=== PATIENT | male | born 1985 | race Caucasian/White ===

== ENCOUNTER 2017-04-12 11:45 | Emergency (ER) | payer BC, OTHER ==
[~2017-04-12] VITALS: Ht 172.7 cm; Wt 79.2 kg
[2017-04-12 11:45] VITALS: TEMP 36.7; Ht 172.7 cm; Wt 79.2 kg
[~2017-04-12 11:45] MED LIST: ERYT1OIN55 OPL
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
[2017-04-12 12:51] LABS: URINE APPEARANCE CLEAR (CLEAR); URINE BILIRUBIN NEG (NEG); URINE COLOR YELLOW; URINE NITRITE NEG (NEG); URINE SPECIFIC GRAVITY 1.009 (1.000-1.030); UROBILINOGEN NEG (NEG)
[2017-04-12 12:58] LABS: MANUAL MICROSCOPIC REQUIRED? NO; REVIEW REQ? NO
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
[2017-04-12 13:09] LABS: BENZODIAZEPINE, URINE NEG (NEG); COCAINE,URINE NEG (NEG); PHENCYCLIDINE, URINE NEG (NEG)
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
[2017-04-12 13:56] LABS: BASO % 0.2 %; BASO ABS # 0.02 K/uL (0-0.2); COMPLETE YES; EOS % 0.1 %; IG% 0.2 %; LYMPH % 11.9 %; LYMPH ABS # 1.52 K/uL (1.2-3.4); MEAN CELL VOLUME 86.5 fL (80-100); MEAN CORPUSCULAR HEMOGLOBIN 30.1 pg (25-34); MEAN CORPUSCULAR HGB CONC 34.8 g/dl (32-36); MEAN PLATELET VOLUME 11.5 fL (7.4-10.4); MONO % 6.4 %; NEUT % 81.2 %; PLATELET COUNT 167 K/uL (130-400); RED BLOOD COUNT 5.32 M/uL (4.7-6.1); WHITE BLOOD COUNT 12.75 K/uL (4.8-10.8)
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
[2017-04-12 14:08] LABS: PARTIAL THROMBOPLASTIN RATIO 1.1; PROTHROMBIN TIME (PATIENT) 10.2 SECONDS (9.0-12.0)
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
[2017-04-12 14:18] LABS: ALT/SGPT 21 U/L (12-78); AST/SGOT 18 U/L (15-37); BLOOD UREA NITROGEN 9 mg/dl (7-18); BUN/CREATININE RATIO 9.6 (10-20); CALCIUM 9.5 mg/dl (8.5-10.1); CARBON DIOXIDE 27 mmol/L (21-32); CHLORIDE 106 mmol/L (98-107); CREATININE 0.96 mg/dl (0.60-1.40); GLUCOSE 112 mg/dl (70-99); POTASSIUM 3.4 mmol/L (3.5-5.1); SODIUM 140 mmol/L (136-145)
[2017-04-12 14:21] LABS: ACETAMINOPHEN < 2 ug/ml (10-30); ALKALINE PHOSPHATASE 86 U/L (45-117)
[2017-04-12 16:14] VITALS: BP 141/90; PULSE 84; O2SAT 93
== END 2017-04-12 13:55 | disposition home or self-care (01) ==
LOC: EDBD 11:45 → C.EDC 11:46 → C.EDA 13:55
DX: S63.501A Unspecified sprain of right wrist, initial encounter (principal); F32.9 Major depressive disorder, single episode, unspecified; F41.9 Anxiety disorder, unspecified; V47.5XXA Car driver injured in collision with fixed or stationary object in traffic accident, initial encounter; Y92.488 Other paved roadways as the place of occurrence of the external cause; F10.10 Alcohol abuse, uncomplicated; K58.9 Irritable bowel syndrome, unspecified; Z91.5 Personal history of self-harm; F17.210 Nicotine dependence, cigarettes, uncomplicated

== ENCOUNTER 2019-05-11 20:39 | Inpatient (IN) ==
--- OUTSIDE RECORDS SUMMARY | 2019-05-11 20:42 | External Medical Summary | Continuity of Care Document ---
:1985 Author Name Jose Gonzalez Address Unavailable Unavailable , Care Team Providers Name Role Phone Abdifatah BOWSER Unavailable [email or web address] Unavailable [email or web address] [email or web address], UNKNOWN Unavailable Unavailable Unavailable Unavailable Unavailable Problems Abnormal weight loss (783.21) (R63.4) Abdominal pain (789.00) (R10.9) Diarrhea (787.91) (R19.7) Allergies and Adverse Reactions No Known Drug Allergies (Allergy) Medications Antacid CHEW Refills: 0 Lactaid CHEW Refills: 0 PriLOSEC OTC 20 MG Oral Tablet Delayed R elease; TAKE 1 TABLET daily 1/2 hour prior to breakfast Case, DO [place] Start: 04-Dec-2011 Quantity: 30 Refills: 5 Procedures Procedures not documented Immunizations Immunizations not documented Family History Unknown Family Member Family history of Diabetes Mellitus (V18.0) Status: Active Comments: Family History Mother Family history of Diabetes Mellitus (V18.0) Status: Active Social History - Smoking Status Current every day smoker Plan of Treatment Planned Observations Planned Goals not documented Results No Known Results Results not documented
[2019-05-11 21:21] LABS: Basophils # (auto) 0.03 K/uL (0-0.2); Basophils % (auto) 0.3 %; Eosinophils # (auto) 0.06 K/uL (0-0.5); Eosinophils % (auto) 0.6 %; Hemoglobin 15.3 g/dL (14.0-18.0); Immature Granulocytes # (auto) 0.02 K/uL (0.00-0.02); Immature Granulocytes % (auto) 0.2 %; Lymphocytes # (auto) 2.23 K/uL (1.2-3.4); Lymphocytes % (auto) 23.9 %; Mean Corpuscular Hgb Conc 33.3 g/dL (32-36); Mean Corpuscular Volume 90.2 fL (80-100); Mean Platelet Volume 10.6 fL (7.4-10.4); Monocytes # (auto) 0.71 K/uL (0.11-0.59); Monocytes % (auto) 7.6 %; Neutrophils # (auto) 6.28 K/uL (1.4-6.5); Neutrophils % (auto) 67.4 %; Platelet Count 241 K/uL (130-400); RDW Coefficient of Variation 13.3 % (11.5-14.5); RDW Standard Deviation 44.2 fL (36.4-46.3); White Blood Count 9.33 K/uL (4.8-10.8)
[2019-05-11 21:39] LABS: Albumin Level 3.8 gm/dl (3.4-5.0); BUN Creatinine Ratio 15.8 (10-20); Calcium 8.9 mg/dl (8.5-10.1); Creatinine Clr Calc Pharmacy 94.8 ml/min; Est GFR (African American) 113.5; Potassium 3.9 mmol/L (3.5-5.1)
[2019-05-11 21:49] LABS: Acetaminophen < 2 ug/ml (10-30); Salicylate < 1.7 mg/dl (2.8-20)
[2019-05-11 21:50] LABS: Albumin Globulin Ratio 1.1 (0.9-2); Bilirubin,Total 0.3 mg/dl (0.2-1); Globulin 3.4 gm/dl (2.5-4.0); Thyroid Stimulating Hormone 1.53 uIu/ml (0.300-4.500); Total Protein 7.2 gm/dl (6.4-8.2)
[2019-05-11 22:40] LABS: Appearance Urine Clear (Clear); Bacteria Urine Automated Negative (Negative); Bilirubin Urine Negative (Negative); Blood Urine Negative (Negative); Color Urine Yellow; Glucose Urine UA Negative (Negative); Ketones Urine Negative (Negative); Leukocyte Esterase Urine Negative (Negative); Nitrite Urine Negative (Negative); RBC Urine Automated 0-4 /hpf (0-4); Specific Gravity Urine 1.013 (1.000-1.030); Urobilinogen Urine Negative (Negative); WBC Urine Automated 0 /hpf (0-5); pH Urine 7.5 (4.5-7.5)
[2019-05-11 22:51] LABS: Protein Urine Negative (Negative); Sulfosalicylic Acid Urine Negative (Negative)
[2019-05-11 22:56] LABS: Amphetamines+Metham, Urine Pos (Neg); Barbiturates, Urine Neg (Neg); Benzodiazepine, Urine Neg (Neg); Cocaine, Urine Neg (Neg); MDMA (Ecstacy), Urine Neg (Neg); Methadone, Urine Neg (Neg); Opiate, Urine Neg (Neg); Phencyclidine, Urine Neg (Neg)
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
--- NOTE | 2019-05-12 03:13 | Emergency Department Note ---
ED Visit Note This case was signed out to me at change of shift awaiting further evaluation by the ED psychiatric case filler. After lengthy discussion with the case filler, we decided it would be in the best interest of the patient to go for inpatient psychiatric care. This was explained to him. He voiced some concerns about who would care for his dog which is locked in his bedroom of his apartment. I suggested that he get his roommates to care for the dog. He went on to explain that they have no money to get an Uber here to get the keys for his bedroom. I offered the police to go to the apartment to care for the dog but he declined stating that his roommate smoke marijuana and he did not want them to get in trouble. The patient suggested that he could be in constant contact with his sister in [place] who is a therapist. I did not feel that this was enough of a safety plan given this patient's situation. 0430: I had a very lengthy conversation with the patient's mother in [place]. I explained to her my concerns for the patient's safety, lack of outpatient psychiatric resources, and lack of a support system here in [place]. The patient also admits that he did not take any Seroquel at all but in fact tried meth for the first time tonight. This makes me question whether or not the patient is just ready. I explained to the mother and the patient again that we are giving him the option to sign himself in voluntarily for inpatient psychiatric care. 0630: The patient is willing to sign himself in voluntarily for inpatient psychiatric care. Referral has been made to the [facility]. They are reviewing the case at this time. The case will be signed out to Dr. Cardenas change of shift for final disposition. .
[2019-05-12] MEDS ORDERED: NICOTINE POLACRILEX 2 MG GUM MT ONE (09:23)
--- NOTE | 2019-05-12 10:56 | Emergency Department Note ---
ED Visit Note The patient was accepted upstairs to [facility] [address] for mental health evaluation. The 302 petition was declined as the patient was desiring voluntary psychiatric admission. .
[2019-05-12] MEDS ORDERED: ACETAMINOPHEN 325 MG TAB PO PRN (11:36)
[2019-05-12] MEDS ORDERED: BISMUTH SUBSALICYLATE PER ML OMNICELL CHARGE PO PRN (11:36)
[2019-05-12] MEDS ORDERED: ALUMINUM/MAGNESIUM SUSP 30 ML UDC PO PRN (11:36)
[2019-05-12] MEDS ORDERED: SODIUM CHLORIDE 0.65% NA SOLN 45 ML (OCEAN) PRN (11:36)
[2019-05-12] MEDS ORDERED: MAGNESIUM HYDROXIDE SUSP 30 ML UDC PO PRN (11:36)
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
[2019-05-12] MEDS ORDERED: NICOTINE POLACRILEX 2 MG GUM MT PRN (19:54)
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
[2019-05-14 15:05] LABS: Amphetamine Urine, Confirm 1830 NG/ML (CUTOFF=250); Marijuana Quant, GCMS Urine 65 NG/ML (CUTOFF=5); Methamphetamine, Ur Confirm 5270 NG/ML (CUTOFF=250)
== END 2019-05-13 12:30 | disposition home or self-care (01) | DRG 880 ==
LOC: ED 20:39 → 3S 05-12 10:40